=== PATIENT | female | born 1995 | race Caucasian/White ===

== ENCOUNTER 2021-06-19 21:20 | Observation (INO) ==
[2021-06-19] MEDS ORDERED: MoRPHine SULFATE 4 MG/ML 1 ML CARP\\VIAL IV STA (21:38)
[2021-06-19] MEDS ORDERED: ONDANSETRON INJ 2 MG/ML 2 ML VIAL IV STA (21:38)
--- NOTE | 2021-06-19 21:40 | Emergency Department Note ---
History of Present Illness General Chief complaint: Back Injury/Pain Stated complaint: BACK PAIN Time Seen by Provider: 06/19/21 21:28 History of Present Illness Maximum Pain Intensity: 10 This is a 25-year-old female that presents to the emergency department via private vehicle with complaints of "back pain". She is accompanied by male. The patient notes that over the past 3 days she has been experiencing low back pain. No known trauma or injury. Patient denies any radiation down her legs. She has been trying heating pad as well as Tylenol with minimal relief. Pain seems to be at rest and also with movements. She denies any fevers, chills, nausea or vomiting. She denies any history of blood clots. She notes intermittent abdominal discomfort. She notes that the pain seemed to worsen today therefore prompting arrival. Patient denies any lower extremity weakness, bowel or bladder incontinence, numbness or tingling in the genital region. Home Medications Medication Instructions Recorded Confirmed Type levothyroxine 75 mcg tablet 75 mcg PO DAILY 10/01/20 06/20/21 History metformin 500 mg tablet,extended 500 mg PO BID 10/01/20 06/20/21 History release 24 hr ibuprofen 200 mg tablet 400 mg PO Q6H PRN 06/20/21 06/20/21 History Allergies Allergy/AdvReac Type Severity Reaction Status Date / Time adhesive tape Allergy Mild Rash Verified 06/20/21 00:34 Past Med/Surg History Medical History Diabetes Hypothyroidism Morbid obesity with BMI of 50.0-59.9, adult Surgical History History of hip surgery at age 12 History of tonsillectomy Family History (Updated 06/20/21 @ 01:20 by Ines Li DO) Other Diabetes Social History Smoking Status: Current every day smoker Tobacco Type: Cigarettes Preferred Language: Beninese Feels Safe at Home: Yes Review of Systems A total of 10 systems reviewed and were otherwise negative Physical Exam Vital Signs Vital Signs - 24 hr 06/19/21 21:20 06/19/21 21:23 06/20/21 01:03 Temperature 36.3 C L Temperature Source Temporal Artery Scan Pulse Rate 107 H Pulse Rate [Left Radial] 70 105 H Pulse Rhythm Regular Pulse Rhythm [Left Radial] Regular Pulse Strength Normal Respiratory Rate 20 20 16 Respiratory Effort / Characteristics Non-Labored Non-Labored Respiratory Depth Normal Normal Respiratory Pattern Regular Blood Pressure 165/105 H Blood Pressure [Left Arm] 168/124 H Blood Pressure Mean 125 Blood Pressure Mean [Left Arm] 138 Blood Pressure Position Sitting Pulse Oximetry 98 97 97 Oxygen Delivery Method Room Air Room Air Sepsis Recent Fever Within 48 Hours No Sepsis New/Unexplained Change in Mental Status N/A Sepsis Action Taken by Nursing No Action Required VITAL SIGNS - Vital signs and nursing notes were reviewed. Stable and afebrile. GENERAL -25-year-old female appearing her stated age who is crying upon my entry into the examination room and appears to be in pain. Patient is communicating well crying. SKIN - Without rashes. No meningeal or petechial rash. HEAD - NC/AT. EYES - Sclera anicteric. EARS - No deformities of external structures noted on gross examination bilaterally. NOSE - Midline and without cyanosis. No epistaxis or purulent drainage noted. MOUTH/OROPHARYNX - Without perioral cyanosis. NECK - Neck with FROM. No nuchal rigidity. LUNGS - Chest wall symmetric without accessory muscle use, intercostals retractions, or central cyanosis. Normal vesicular breath sounds CTA B/L. No wheezes, rales, or rhonchi appreciated. CARDIAC - RRR with S1/S2. No murmur, rubs, or gallops appreciated. ABDOMEN - Abdominal contour without visible masses. BS normoactive all four quadrants. No tenderness to palpation. MUSCULOSKELETALno bony tenderness or palpable spasms in the paraspinous musculature. EXTREMITIES - No clubbing or peripheral cyanosis. +5/5 strength noted in UE/LE bilaterally. NEUROLOGIC - Cranial nerves II through XII grossly intact. PSYCH - A&Ox3 and cooperates fully with examiner. Pt is very pleasant and int eracts well with examiner. Course Administered Medications Lactated Ringer's (Lr) 1,000 mls @ 125 mls/hr IV .Q8H PRISCA Stop: 06/20/21 18:11 Last Admin: 06/20/21 02:32 Dose: 125 mls/hr Documented by: [id number] Ketorolac Tromethamine (Ketorolac Tromethamine 15 Mg/Ml Vial) 15 mg IV Q6H PRN PRN Reason: Pain Stop: 06/25/21 02:11 Last Admin: 06/20/21 02:32 Dose: 15 mg Documented by: [id number] Discontinued Medications Sodium Chloride (Nss 1000ml) 1,000 mls @ 999 mls/hr IV .Q1H1M PRISCA Stop: 06/20/21 00:15 Last Infusion: 06/20/21 01:24 Dose: 0 mls/hr Documented by: [id number] Admin: 06/19/21 23:20 Dose: 999 mls/hr Documented by: [id number] Ceftriaxone Sodium (Rocephin) 2,000 mg in 70 mls @ 140 mls/hr IV NOW STA Stop: 06/20/21 00:51 Last Infusion: 06/20/21 01:24 Dose: 0 mls/hr Documented by: [id number] Admin: 06/20/21 00:54 Dose: 140 mls/hr Documented by: [id number] Insulin Human Regular (Novolin-R Insulin Per Unit Charge) 10 units IV NOW STA Stop: 06/19/21 23:08 Last Admin: 06/19/21 23:20 Dose: 10 units Documented by: [id number] Cosigned by: [id number] Ioversol (Optiray 320 125ml) 117 ml IV ONCE ONE Stop: 06/19/21 22:45 Last Admin: 06/19/21 22:46 Dose: 117 ml Documented by: [id number] Morphine Sulfate (Morphine Sulfate 4 Mg/Ml 1 Ml Carp\\Vial) 4 mg IV NOW STA Stop: 06/19/21 21:39 Last Admin: 06/19/21 21:48 Dose: 4 mg Documented by: [id number] Ondansetron HCl (Ondansetron Inj 2 Mg/Ml 2 Ml Vial) 4 mg IV NOW STA Stop: 06/19/21 21:39 Last Admin: 06/19/21 21:48 Dose: 4 mg Documented by: [id number] Medical Decision Making Laboratory Data Result diagrams: 06/19/21 21:45 06/19/21 21:45 Lab Results 06/19/21 06/19/21 06/19/21 Range/Units 21:45 21:45 21:45 WBC 12.71 H (4.8-10.8) K/uL RBC 5.62 H (4.2-5.4) M/uL Hgb 14.7 (12.0-16.0) g/dL Hct 45.7 (37-47) % MCV 81.3 (80-100) fL MCH 26.2 (25-34) pg MCHC 32.2 (32-36) g/dL RDW Std Deviation 44.6 (36.4-46.3) fL RDW Coeff of Tod 15.1 H (11.5-14.5) % Plt Count 287 (130-400) K/uL MPV 9.0 (7.4-10.4) fL Immature Gran % (Auto) 0.3 % Neut % (Auto) 70.5 % Lymph % (Auto) 23.2 % [place] % (Auto) 4.7 % Eos % (Auto) 1.1 % Baso % (Auto) 0.2 % Neut # (Auto) 8.95 H (1.4-6.5) K/uL Lymph # (Auto) 2.95 (1.2-3.4) K/uL [place] # (Auto) 0.60 H (0.11-0.59) K/uL Eos # (Auto) 0.14 (0-0.5) K/uL Baso # (Auto) 0.03 (0-0.2) K/uL Immature Gran # (Auto) 0.04 H (0.00-0.02) K/uL Sodium 134 L (136-145) mmol/L Potassium 4.3 (3.5-5.1) mmol/L Chloride 97 L (98-107) mmol/L Carbon Dioxide 30 (21-32) mmol/L Anion Gap 7 (3-11) BUN 7 (6-23) mg/dl Creatinine 0.74 (0.6-1.2) mg/dl Est Cr Clr Drug Dosing 174.4 ml/min Est GFR ( Amer) 132.4 ml/min Est GFR (Non-Af Amer) 114.2 ml/min BUN/Creatinine Ratio 9.5 L (10-20) Glucose 486 H* (70-99(Fasting)) mg/dl POC Glucose (70-99) mg/dl Calcium 9.7 (8.5-10.1) mg/dl Magnesium 1.7 (1.7-2.4) mg/dl Total Bilirubin 0.5 (0.2-1.0) mg/dl AST 36 (13-39) U/L ALT 32 (7-52) U/L Alkaline Phosphatase 155 H (34-104) U/L Total Protein 8.2 (6.0-8.3) gm/dl Albumin 4.0 (3.4-5.0) gm/dl Globulin 4.2 H (2.5-4.0) gm/dl Albumin/Globulin Ratio 1.0 (0.9-2) HCG, Qual Negative (Negative) Urine Color Urine Appearance (Clear) Urine pH (4.5-7.5) Ur Specific [place] (1.000-1.030) Urine Protein (Negative) Urine Glucose (UA) (Negative) Urine Ketones (Negative) Urine Blood (Negative) Urine Nitrite (Negative) Urine Bilirubin (Negative) Urine Urobilinogen (Negative) Ur Leukocyte Esterase (Negative) Urine WBC (Auto) (0-5) /hpf Urine RBC (Auto) (0-4) /hpf U Hyaline Cast (Auto) (0-5) /lpf U Epithel Cells (Auto) (0-5) /lpf Urine Bacteria (Auto) (Negative) SARS-CoV-2, RNA, NAAT (NEGATIVE) 06/19/21 06/19/21 06/19/21 Range/Units 23:11 23:15 23:45 WBC (4.8-10.8) K/uL RBC (4.2-5.4) M/uL Hgb (12.0-16.0) g/dL Hct (37-47) % MCV (80-100) fL MCH (25-34) pg MCHC (32-36) g/dL RDW Std Deviation (36.4-46.3) fL RDW Coeff of Tod (11.5-14.5) % Plt Count (130-400) K/uL MPV (7.4-10.4) fL Immature Gran % (Auto) % Neut % (Auto) % Lymph % (Auto) % [place] % (Auto) % Eos % (Auto) % Baso % (Auto) % Neut # (Auto) (1.4-6.5) K/uL Lymph # (Auto) (1.2-3.4) K/uL [place] # (Auto) (0.11-0.59) K/uL Eos # (Auto) (0-0.5) K/uL Baso # (Auto) (0-0.2) K/uL Immature Gran # (Auto) (0.00-0.02) K/uL Sodium (136-145) mmol/L Potassium (3.5-5.1) mmol/L Chloride (98-107) mmol/L Carbon Dioxide (21-32) mmol/L Anion Gap (3-11) BUN (6-23) mg/dl Creatinine (0.6-1.2) mg/dl Est Cr Clr Drug Dosing ml/min Est GFR ( Amer) ml/min Est GFR (Non-Af Amer) ml/min BUN/Creatinine Ratio (10-20) Glucose (70-99(Fasting)) mg/dl POC Glucose 443 H* 408 H* (70-99) mg/dl Calcium (8.5-10.1) mg/dl Magnesium (1.7-2.4) mg/dl Total Bilirubin (0.2-1.0) mg/dl AST (13-39) U/L ALT (7-52) U/L Alkaline Phosphatase (34-104) U/L Total Protein (6.0-8.3) gm/dl Albumin (3.4-5.0) gm/dl Globulin (2.5-4.0) gm/dl Albumin/Globulin Ratio (0.9-2) HCG, Qual (Negative) Urine Color Yellow Urine Appearance Clear (Clear) Urine pH 5.0 (4.5-7.5) Ur Specific [place] 1.034 H (1.000-1.030) Urine Protein Negative (Negative) Urine Glucose (UA) 3+ H (Negative) Urine Ketones Negative (Negative) Urine Blood 1+ H (Negative) Urine Nitrite Positive A (Negative) Urine Bilirubin Negative (Negative) Urine Urobilinogen Negative (Negative) Ur Leukocyte Esterase 1+ H (Negative) Urine WBC (Auto) >30 H (0-5) /hpf Urine RBC (Auto) 5-10 H (0-4) /hpf U Hyaline Cast (Auto) 1-5 (0-5) /lpf U Epithel Cells (Auto) 20-30 H (0-5) /lpf Urine Bacteria (Auto) 4+ H (Negative) SARS-CoV-2, RNA, NAAT (NEGATIVE) 06/20/21 06/20/21 Range/Units 00:21 00:58 WBC (4.8-10.8) K/uL RBC (4.2-5.4) M/uL Hgb (12.0-16.0) g/dL Hct (37-47) % MCV (80-100) fL MCH (25-34) pg MCHC (32-36) g/dL RDW Std Deviation (36.4-46.3) fL RDW Coeff of Tod (11.5-14.5) % Plt Count (130-400) K/uL MPV (7.4-10.4) fL Immature Gran % (Auto) % Neut % (Auto) % Lymph % (Auto) % [place] % (Auto) % Eos % (Auto) % Baso % (Auto) % Neut # (Auto) (1.4-6.5) K/uL Lymph # (Auto) (1.2-3.4) K/uL [place] # (Auto) (0.11-0.59) K/uL Eos # (Auto) (0-0.5) K/uL Baso # (Auto) (0-0.2) K/uL Immature Gran # (Auto) (0.00-0.02) K/uL Sodium (136-145) mmol/L Potassium (3.5-5.1) mmol/L Chloride (98-107) mmol/L Carbon Dioxide (21-32) mmol/L Anion Gap (3-11) BUN (6-23) mg/dl Creatinine (0.6-1.2) mg/dl Est Cr Clr Drug Dosing ml/min Est GFR ( Amer) ml/min Est GFR (Non-Af Amer) ml/min BUN/Creatinine Ratio (10-20) Glucose (70-99(Fasting)) mg/dl POC Glucose 312 H* (70-99) mg/dl Calcium (8.5-10.1) mg/dl Magnesium (1.7-2.4) mg/dl Total Bilirubin (0.2-1.0) mg/dl AST (13-39) U/L ALT (7-52) U/L Alkaline Phosphatase (34-104) U/L Total Protein (6.0-8.3) gm/dl Albumin (3.4-5.0) gm/dl Globulin (2.5-4.0) gm/dl Albumin/Globulin Ratio (0.9-2) HCG, Qual (Negative) Urine Color Urine Appearance (Clear) Urine pH (4.5-7.5) Ur Specific [place] (1.000-1.030) Urine Protein (Negative) Urine Glucose (UA) (Negative) Urine Ketones (Negative) Urine Blood (Negative) Urine Nitrite (Negative) Urine Bilirubin (Negative) Urine Urobilinogen (Negative) Ur Leukocyte Esterase (Negative) Urine WBC (Auto) (0-5) /hpf Urine RBC (Auto) (0-4) /hpf U Hyaline Cast (Auto) (0-5) /lpf U Epithel Cells (Auto) (0-5) /lpf Urine Bacteria (Auto) (Negative) SARS-CoV-2, RNA, NAAT NEGATIVE (NEGATIVE) Imaging Data Radiologist's Impression: CT L SPINE: No fracture or dislocation. Alignment unremarkable. 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 Moderate canal stenosis at the L3-L4 level. Mild canal stenosis at L4-L5. Soft tissue structures are intact. Impression: No acute findings. Canal narrowing as described. Radiologist: Dakotah Mon M.D. Study ready at 23:06 and initial results transmitted at 23:26 CT ABDOMEN & PELVIS With Contrast: Lower thorax is clear. Fatty, large liver. Right lobe measures 30 cm. Cholelithiasis. Pancreas intact. Spleen enlarged measuring 16 cm. Adrenals and kidneys are intact. Bladder unremarkable bowel loops intact. Normal appendix. No adenopathy, free fluid or free air. No acute findings in the [place]. Impression: No acute findings. Hepatosplenomegaly. Cholelithiasis. Fatty liver. Radiologist: Dakotah Mon M.D. Study ready at 22:57 and initial results transmitted at 23:19 MDM Narrative Patient was seen and evaluated as above in room D05. Review was performed of nursing notes and vital signs. I did review pertinent previous visits and patient history. After obtaining a thorough history and physical examination the above work up was performed. Patient presents to us today with atraumatic back pain. She is nontoxic on exam. No evidence of cauda equina syndrome. Discomfort not reproducible on exam with palpation to the L-spine. Options of care were discussed with the patient. IV access was established. Labs were drawn. She was medicated with IV analgesics and antiemetics. Labs reveal mild leukocytosis 12.71. No anemia. Mild hyponatremia 134. I was notified of the patient's significant hyperglycemia at 486. Repeat glucose 408. 10 units of regular insulin was ordered intravenously. This was accompanied by 1 L of normal saline. This decreased the glucose to 312. Patient's urinalysis at this time suggests potential for UTI. Patient has a history of UTI and this feels similar. COVID testing negative. Imaging was obtained. CT scan of the abdomen pelvis with L-spine assessment does not reveal any emergent etiology. Clinically I am concerned about potential for UTI/pyelonephritis. With the patient presenting with a significantly hyperglycemic state, UTI in the setting of back pain it is felt that further evaluation and management in the inpatient setting is warranted. 2 g of IV Rocephin was ordered. When I inquired about the patient's hyperglycemia and compliance with her metformin she notes that she takes it sometimes. She believes that she last took metformin yesterday. Case discussed with the hospitalist as well as the attending physician. Please refer to further documentation regarding her stay. GCS: 15 In the evaluation and treatment of this patient the following differential diagnoses were entertained: UTI, pyelonephritis, hyperglycemia, DKA, sepsis, among others. Impression & Plan Back pain, UTI (urinary tract infection), Hyperglycemia Discharge Plan Visit Data Chief Complaint: Back Injury/Pain Stated Complaint: BACK PAIN ED Provider: Vernon Wade ED Midlevel Provider: Parviz Turner Discharge Problem: Back pain, UTI (urinary tract infection), Hyperglycemia Patient Disposition: Admitted As Inpatient Condition: Good Discharge Instructions Interventions: ED Discharge Assessment Last Done: 06/20/21 01:51
[2021-06-19 22:02] LABS: Basophils # (auto) 0.03 K/uL (0-0.2); Basophils % (auto) 0.2 %; Eosinophils # (auto) 0.14 K/uL (0-0.5); Eosinophils % (auto) 1.1 %; Hematocrit (blood only) 45.7 % (37-47); Hemoglobin 14.7 g/dL (12.0-16.0); Immature Granulocytes # (auto) 0.04 K/uL (0.00-0.02); Immature Granulocytes % (auto) 0.3 %; Lymphocytes # (auto) 2.95 K/uL (1.2-3.4); Lymphocytes % (auto) 23.2 %; Mean Corpuscular Hemoglobin 26.2 pg (25-34); Mean Corpuscular Hgb Conc 32.2 g/dL (32-36); Mean Corpuscular Volume 81.3 fL (80-100); Monocytes % (auto) 4.7 %; Neutrophils # (auto) 8.95 K/uL (1.4-6.5); Neutrophils % (auto) 70.5 %; Platelet Count 287 K/uL (130-400); RDW Coefficient of Variation 15.1 % (11.5-14.5); RDW Standard Deviation 44.6 fL (36.4-46.3); Red Blood Count 5.62 M/uL (4.2-5.4); White Blood Count 12.71 K/uL (4.8-10.8)
[2021-06-19 22:26] LABS: Pregnancy Test, Serum Negative (Negative)
[2021-06-19 22:29] LABS: BUN Creatinine Ratio 9.5 (10-20); Bilirubin,Total 0.5 mg/dl (0.2-1.0); Calcium 9.7 mg/dl (8.5-10.1); Creatinine Clr Calc Pharmacy 174.4 ml/min; Est GFR (African American) 132.4 ml/min; Est GFR (Non-African American) 114.2 ml/min; Globulin 4.2 gm/dl (2.5-4.0); Magnesium 1.7 mg/dl (1.7-2.4); Potassium 4.3 mmol/L (3.5-5.1); Total Protein 8.2 gm/dl (6.0-8.3)
[2021-06-19] MEDS ORDERED: OPTIRAY 320 125ml IV ONE (22:44)
[2021-06-19] MEDS ORDERED: NovoLIN-R INSULIN PER UNIT CHARGE IV STA (23:07)
[2021-06-19] MEDS ORDERED: SODIUM CHLORIDE 0.9% 1000ML 1,000 ML IV SCH (23:15)
[2021-06-19 23:55] LABS: Appearance Urine Clear (Clear); Bacteria Urine Automated 4+ (Negative); Bilirubin Urine Negative (Negative); Blood Urine 1+ (Negative); Color Urine Yellow; Epithelial Cell Urine Auto 20-30 /lpf (0-5); Glucose Urine UA 3+ (Negative); Ketones Urine Negative (Negative); Leukocyte Esterase Urine 1+ (Negative); Nitrite Urine Positive (Negative); Protein Urine Negative (Negative); Specific Gravity Urine 1.034 (1.000-1.030); Urobilinogen Urine Negative (Negative); WBC Urine Automated >30 /hpf (0-5)
[2021-06-20] MEDS ORDERED: cefTRIAXone SODIUM 2,000 MG/70 ML BAG IV STA (00:22)
--- NOTE | 2021-06-20 01:35 | History & Physical Report ---
Date of Service June 20, 2021 Assessment & Plan (1) Diabetes: Plan: Patient with fairly new diagnosis of DM. She is on Metformin therapy at home. Misses doses frequently. Presents with hyperglycemia - BSG 486 on arrival. Improved to 312 after 1L IVF and 10u insulin IV. -Observation to medical -Fingersticks qAC/HS -Lantus 7u BID, ISS with goal BSG 100 - 140 -Check HgbA1C -Patient follows in the [facility] with Dr. Welch. Would possibly benefit from outpatient diabetes education referral. -Resume Metformin on DC (2) Back pain: Plan: ?Muscular strain ?early pyelonephritis. No neurological deficits -Tylenol PRN -Toradol PRN -Lidoderm patch -Heating pad -Morphine PRN (3) UTI (urinary tract infection): Plan: Patient with frequent UTIs. No CVA tenderness. No mention of pyelonephritis on CT -Ceftriaxone 2gm IV daily (dosed for weight) -Follow cultures (4) Hypothyroidism: Plan: Chronic -Check TSH with AM labs -Continue Synthroid Plan: F/E/N - LR maintenance 125mL/hr x 2L, electroltyes WNL - sodium corrects to normal for hyperglycemia, CC diet as tolerated Ppx - Low risk for DVT. Encourage ambulation with assistance as tolerated Code - Full Dispo - Observation to medical History of Present Illness Chief Complaint: back pain Primary Care Provider: NO PCP Debi Diaz is a 25yo female with history of DM (fairly recently diagnosed within the last 1-2 years). She is on Metformin therapy with poor adherence. She presents today with 3 days of low back pain. Pain is constant, dull and aching, located across the low back. She has occasional stabbing pain, 10/10 at its worst. Worse with movement and position as well as deep breathing. She denies numbness/tingling/weakness. Denies bowel or bladder problems. No trauma, no strain. Patient has missed several doses of her Metformin. She states that she tolerates the medication well but has difficulty remembering to take it. She denies fever, chills, chest pain, cough, SOB. Denies abdominal pain, nausea, vomiting, diarrhea or constipation, dysuria, hematuria. No additional complaints at this time. In the ER patient was in acute distress secondary to pain. She was administered Morphine IV which improved her pain to 7/10. Her significant other is in the room with her. Patient is tearful and does not wish to stay in the hospital without her significant other. Blood sugar elevated at 486 on arrival. Improved to 312 after IVF and 10u IV insulin No anion gap ER Course: Ceftriaxone 2gm IV, Insulin 10u IV, Morphine 4mg IV, Zofran 4mg IV, NSS x 1L Allergies Allergy/AdvReac Type Severity Reaction Status Date / Time adhesive tape Allergy Mild Rash Verified 06/20/21 00:34 Home Medications Medication Instructions Recorded Confirmed Type levothyroxine 75 mcg tablet 75 mcg PO DAILY 10/01/20 06/20/21 History metformin 500 mg tablet,extended 500 mg PO BID 10/01/20 06/20/21 History release 24 hr ibuprofen 200 mg tablet 400 mg PO Q6H PRN 06/20/21 06/20/21 History Past Med/Surg History Medical History (Updated 06/20/21 @ 01:34 by Ines Li DO) Diabetes Hypothyroidism Morbid obesity with BMI of 50.0-59.9, adult Surgical History (Updated 06/20/21 @ 01:24 by Ines Li DO) History of hip surgery at age 12 History of tonsillectomy Family History (Updated 06/20/21 @ 01:20 by Ines Li DO) Other Diabetes Social History Smoking Status: Current every day smoker Tobacco Type: Cigarettes Preferred Language: Kyrgyz Feels Safe at Home: Yes Review of Systems Review of Systems: All systems reviewed & are unremarkable except as noted in HPI & below Physical Exam Physical Exam: General: patient resting comfortably, NAD, non-toxic in appearance, AA&O x 4 Skin: warm, dry, intact, no rashes or lesions HEENT: NC/AT, PERRL, EOMI, anicteric sclera, conjunctiva without injection, external ear normal to inspection and nontender, nares patent, moist mucus membranes, dentition intact, no oropharyngeal lesions, neck supple, trachea midline, no LAD, no thyromegaly, no JVD Heart: +S1/S2, regular, no m/r/g Lungs: equal air entry bilaterally, no rales/rhonchi/wheezes Abd: +BS, soft, NT/ND, no masses/organomegaly/ascites Ext: warm, 2+ pulses in UE/LE bilaterally, no clubbing/cyanosis or edema Tenderness with palpation of lumbar spine, tension of paraspinal musculature No CVA tenderness Neuro: nonfocal, patient AA&O x 4, speech intact, no facial droop, moving all extremities on command with equal strength 5/5 Results & Data Results & Data ([facility]) Vital Signs (Past 12 Hours) Vital Signs Temp Pulse Pulse Resp BP BP Pulse Ox 06/20/21 01:03 105 H 16 168/124 H 97 06/19/21 21:23 36.3 C L 107 H 20 165/105 H 97 06/19/21 21:20 70 20 98 Laboratory Results Laboratory Results WBC 12.71 K/uL (4.8-10.8) H 06/19/21 21:45 RBC 5.62 M/uL (4.2-5.4) H 06/19/21 21:45 Hgb 14.7 g/dL (12.0-16.0) 06/19/21 21:45 Hct 45.7 % (37-47) 06/19/21 21:45 MCV 81.3 fL (80-100) 06/19/21 21:45 MCH 26.2 pg (25-34) 06/19/21 21:45 MCHC 32.2 g/dL (32-36) 06/19/21 21:45 RDW Std Deviation 44.6 fL (36.4-46.3) 06/19/21 21:45 RDW Coeff of Tod 15.1 % (11.5-14.5) H 06/19/21 21:45 Plt Count 287 K/uL (130-400) 06/19/21 21:45 MPV 9.0 fL (7.4-10.4) 06/19/21 21:45 Immature Gran % (Auto) 0.3 % 06/19/21 21:45 Neut % (Auto) 70.5 % 06/19/21 21:45 Lymph % (Auto) 23.2 % 06/19/21 21:45 [place] % (Auto) 4.7 % 06/19/21 21:45 Eos % (Auto) 1.1 % 06/19/21 21:45 Baso % (Auto) 0.2 % 06/19/21 21:45 Neut # (Auto) 8.95 K/uL (1.4-6.5) H 06/19/21 21:45 Lymph # (Auto) 2.95 K/uL (1.2-3.4) 06/19/21 21:45 [place] # (Auto) 0.60 K/uL (0.11-0.59) H 06/19/21 21:45 Eos # (Auto) 0.14 K/uL (0-0.5) 06/19/21 21:45 Baso # (Auto) 0.03 K/uL (0-0.2) 06/19/21 21:45 Immature Gran # (Auto) 0.04 K/uL (0.00-0.02) H 06/19/21 21:45 Sodium 134 mmol/L (136-145) L 06/19/21 21:45 Potassium 4.3 mmol/L (3.5-5.1) 06/19/21 21:45 Chloride 97 mmol/L (98-107) L 06/19/21 21:45 Carbon Dioxide 30 mmol/L (21-32) 06/19/21 21:45 Anion Gap 7 (3-11) 06/19/21 21:45 BUN 7 mg/dl (6-23) 06/19/21 21:45 Creatinine 0.74 mg/dl (0.6-1.2) 06/19/21 21:45 Est Cr Clr Drug Dosing 174.4 ml/min 06/19/21 21:45 Est GFR ( Amer) 132.4 ml/min 06/19/21 21:45 Est GFR (Non-Af Amer) 114.2 ml/min 06/19/21 21:45 BUN/Creatinine Ratio 9.5 (10-20) L 06/19/21 21:45 Glucose 486 mg/dl (70-99(Fasting)) H* 06/19/21 21:45 POC Glucose 312 mg/dl (70-99) H* 06/20/21 00:21 Calcium 9.7 mg/dl (8.5-10.1) 06/19/21 21:45 Magnesium 1.7 mg/dl (1.7-2.4) 06/19/21 21:45 Total Bilirubin 0.5 mg/dl (0.2-1.0) 06/19/21 21:45 AST 36 U/L (13-39) 06/19/21 21:45 ALT 32 U/L (7-52) 06/19/21 21:45 Alkaline Phosphatase 155 U/L (34-104) H 06/19/21 21:45 Total Protein 8.2 gm/dl (6.0-8.3) 06/19/21 21:45 Albumin 4.0 gm/dl (3.4-5.0) 06/19/21 21:45 Globulin 4.2 gm/dl (2.5-4.0) H 06/19/21 21:45 Albumin/Globulin Ratio 1.0 (0.9-2) 06/19/21 21:45 HCG, Qual Negative (Negative) 06/19/21 21:45 Urine Color Yellow 06/19/21 23:15 Urine Appearance Clear (Clear) 06/19/21 23:15 Urine pH 5.0 (4.5-7.5) 06/19/21 23:15 Ur Specific [place] 1.034 (1.000-1.030) H 06/19/21 23:15 Urine Protein Negative (Negative) 06/19/21 23:15 Urine Glucose (UA) 3+ (Negative) H 06/19/21 23:15 Urine Ketones Negative (Negative) 06/19/21 23:15 Urine Blood 1+ (Negative) H 06/19/21 23:15 Urine Nitrite Positive (Negative) A 06/19/21 23:15 Urine Bilirubin Negative (Negative) 06/19/21 23:15 Urine Urobilinogen Negative (Negative) 06/19/21 23:15 Ur Leukocyte Esterase 1+ (Negative) H 06/19/21 23:15 Urine WBC (Auto) >30 /hpf (0-5) H 06/19/21 23:15 Urine RBC (Auto) 5-10 /hpf (0-4) H 06/19/21 23:15 U Hyaline Cast (Auto) 1-5 /lpf (0-5) 06/19/21 23:15 U Epithel Cells (Auto) 20-30 /lpf (0-5) H 06/19/21 23:15 Urine Bacteria (Auto) 4+ (Negative) H 06/19/21 23:[address] lumbar spine: Per stat radno fracture or dislocation. Alignment unremarkable. 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 Moderate canal stenosis at L3-L4 level. Mild canal stenosis at the L4-L5. Soft tissue structures are intact. Impression: No acute findings. Canal narrowing as described. CT abdomen and pelvis with contrast: Per stat readlower thorax is clear. Fatty, large liver. Right lobe measures 30 cm. Cholelithiasis. Pancreas intact. Spleen enlarged measuring 16 cm. Adrenals and kidneys are intact. Bladder unremarkable, bowel loops intact. Normal appendix. No adenopathy, free fluid or free air. No acute findings in the bones. Impression: No acute findings. Hepatosplenomegaly. Cholelithiasis. Fatty liver Code Status & VTE Plan VTE Prophylaxis Plan VTE Prophylaxis will be ordered: No PG Care Time/CCT Total # of Minutes Spent Total Time Spent with Patient: Total time spent is greater than 50% in coordination of care (as documented) at patient's floor/unit and/or counseling patient: Coding Level of Care Code INT OBSERVATION CARE 50M LVL 2 Diagnoses Diabetes E11.9 Hypothyroidism E03.9 Back pain M54.9 UTI (urinary tract infection) N39.0
[2021-06-20] MEDS ORDERED: ONDANSETRON INJ 2 MG/ML 2 ML VIAL IV PRN (02:12)
[2021-06-20] MEDS ORDERED: GLUCOSE 40% GEL 15 GM TUBE PO PRN (02:12)
[2021-06-20] MEDS ORDERED: CARBOHYDRATES FOR HYPOGLYCEMIA PO PRN (02:12)
[2021-06-20] MEDS ORDERED: GLUCAGON FOR INJ 1 MG VIAL SQ PRN (02:12)
[2021-06-20] MEDS ORDERED: ACETAMINOPHEN 325 MG TAB PO PRN (02:12)
[2021-06-20] MEDS ORDERED: MoRPHine SULFATE 2 MG/ML CARP IV PRN (02:12)
[2021-06-20] MEDS ORDERED: KETOROLAC TROMETHAMINE 15 MG/ML VIAL IV PRN (02:12)
[2021-06-20] MEDS ORDERED: GLUCOSE 10 TABS/TUBE PO PRN (02:12)
[2021-06-20] MEDS ORDERED: DEXTROSE 50% 50 ML SYRINGE IV PRN (02:12)
[2021-06-20] MEDS: LACTATED RINGER'S 1,000 ML IV SCH ×2 (02:32→09:55)
[2021-06-20] MEDS ORDERED: LEVOTHYROXINE SODIUM 75 MCG TABLET PO SCH (06:30)
--- NOTE | 2021-06-20 07:21 | CT Scan Report ---
CT lumbar spine w con HISTORY: 25 years-old Female low back pain acute low back pain COMPARISON: CT abdomen and pelvis of same day TECHNIQUE: Multiple axial CT images of the lumbar spine were obtained following the intravenous admin istration of 117 mL Optiray 320. A dose lowering technique was used consistent with the principals of REN. FINDINGS: Cholelithiasis with hepatic steatosis and hepatosplenomegaly. ORIF changes of the left proximal femur . No paravertebral edema or lymphadenopathy. Ill-defined linear lucencies noted involving the right L2 transverse process (image 119 of series 4 a nd also image 39 of series 401). Mild degeneration of the SI joints. There is no subluxation, signifi cant intervertebral disc space narrowing or endplate erosion. No spondylolysis or spondylolisthesis. Bone mineralization appears normal. Evaluation of the central canal and neuroforamina is better asses sed by MRI. There is suggestion of congenitally shortened pedicles. This contributes to mild backgrou nd central canal narrowing. No high-grade central canal or neural foraminal narrowing identified. The re is a small posterior disc osteophyte complex at L1-L2. There is suggestion of mild multilevel neur al foraminal narrowing common notably on the left at L4-L5. IMPRESSION: 1. Ill-defined linear lucency involving the right L2 transverse process may represent an acute nondis placed fracture. Correlate with point tenderness. This finding was called/faxed to the emergency depa rtment at time of dictation. 2. Congenitally shortened pedicles. No high-grade central canal or neural foraminal narrowing identif ied. 3. Cholelithiasis. 4. Hepatic steatosis with hepatosplenomegaly. ACT 112: Negative or not required by law. The above report was generated using voice recognition software. It may contain grammatical, syntax o r spelling errors. Electronically signed by: Noble Carpio M.D. 06/20/2021 7:19 AM
--- NOTE | 2021-06-20 08:02 | CT Scan Report ---
CT SCAN OF THE ABDOMEN AND PELVIS WITH IV CONTRAST CLINICAL HISTORY: Low back pain. COMPARISON STUDY: Abdominal CT dated 03/29/2021. TECHNIQUE: Following the IV administration of 117 cc of Optiray 320, CT scan of the abdomen and pelv is is performed from the lung bases to the proximal femora. Images are reviewed in the axial, sagitta l, and coronal planes. IV contrast was administered without complication. A dose lowering technique w as utilized adhering to the principles of ALARA. The examination is degraded by large body habitus, a nd by streak artifact from the body wall abutting the CT gantry. CT DOSE: 2200.79 mGy.cm FINDINGS: Lung bases: The heart is normal in size and without pericardial effusion. The lung bases are clear. Liver: The contrast-enhanced liver is enlarged, measuring 31 cm in craniocaudal length. The liver dem onstrates diffusely diminished attenuation consistent with hepatic steatosis. Fatty sparing is seen a djacent to gallbladder fossa. There is no intrahepatic biliary ductal dilatation. The hepatic veins a nd portal veins are patent. Gallbladder: There are numerous calcified gallstones with no CT evidence of acute cholecystitis. Spleen: The spleen is enlarged measuring 17.3 cm in length. Pancreas: Mildly atrophic and grossly unremarkable. Adrenal glands: Unremarkable. Kidneys: The contrast enhanced kidneys are normal in size and without hydronephrosis. The kidneys enh ance symmetrically. Abdominal vasculature: The abdominal aorta is normal in course and caliber. Bowel: No bowel obstruction is. The appendix is normal as visualized. Peritoneum: There is no intraperitoneal free air or abdominal ascites. Lymphadenopathy: None. Pelvic viscera: The bladder, uterus, and adnexa are normal as visualized noting bilateral ovarian fol licles. Skeletal structures: No lytic or blastic lesions are seen. 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 IMPRESSION: 1. There are no acute infectious or inflammatory findings in the abdomen or pelvis. 2. Hepatomegaly and severe hepatic steatosis. 3. Splenomegaly. 4. 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 5. Cholelithiasis. 6. Additional findings as above. ACT 112: Negative or not required by law. Electronically signed by: Raymond Richards M.D. 06/20/2021 7:59 AM
[2021-06-20 08:31] LABS: Estimated Average Glucose 303 mg/dl; Hemoglobin A1C 12.2 % (4.5-5.6)
[2021-06-20] MEDS ORDERED: INSULIN GLARGINE SOLOSTAR 100 UNITS/ML 3 ML PEN SC SCH ×4 (09:00→21:00)
[2021-06-20] MEDS ORDERED: INSULIN HUMAN REGULAR PER UNIT 8 UNITS in SYRINGE 7.92 ML IV ONE (09:15)
[2021-06-20] MEDS: INSULIN ASPART PER UNIT SC SCH ×4 (09:15→21:25)
[2021-06-20] MEDS: LIDOCAINE 5% 1 PATCH TD SCH (09:18)
[2021-06-20] MEDS ORDERED: DICLOFENAC SOD 1% GEL 100 GM TUBE EXT PRN (10:18)
--- NOTE | 2021-06-20 11:38 | Hospitalist Progress Note ---
Date of Service June 20, 2021 Assessment & Plan (1) Diabetes: Plan: Patient with fairly new diagnosis of DM. She is on Metformin therapy at home. Misses doses frequently. Presents with hyperglycemia - BSG 486 on arrival. Improved to 312 after 1L IVF and 10u insulin IV. - A1C 12.2% - has been started on Lantus (7U BID) along with SS coverage with analog-- blood sugars remain in the mid-upper 300's - uptitrate lantus to 20U total and shift to once/day for added compliance - continue metformin open disease can transition to XR as compliance with the twice daily dosing seems to be an issue) -Lengthy discussion with patient regarding the importance of good glycemic control and complications/sequela of uncontrolled diabetes mellitus. I do think that long-term insulin is going to be difficult for this patient especially given her medical non-compliance; however, with her blood sugars remaining in the 300 range, I do not believe we will get them down to a reasonable level with oral antihyperglycemic agents upfront. I would advise Lantus at least temporarily with continued metformin. Lengthy discussion with her regarding dietary and behavioral modifications. I have asked the dietitian and certified breastfeeding educator to meet with the patient--appreciate assistance. May benefit from Onglyza or Trulicity as this would help with added weight loss as well (2) Back pain: Plan: - CT scan shows lucency of the L2 transverse process consistent with an acute fracture - Patient without trauma or injury. I was concerned there was an underlying issue (such as a malignancy) for which further imaging may be required. I have discussed this case with Dr. aGo (the admissions specialist) who reviewed her CT scan imaging and reports that it is a very benign and clean fracture. He claims that even slight twisting with her current weight could cause such an injury. Recommendations are conservative management/pain medication - will add Voltaren gel (3) UTI (urinary tract infection): Plan: Patient with frequent UTIs. No CVA tenderness. No mention of pyelonephritis on CT UA grossly infected, final culture data pending -Ceftriaxone 2gm IV daily (dosed for weight) -Follow cultures (4) Hypothyroidism: Plan: Chronic -TSH= 40.66 -increase Synthroid. Need repeat TSH in 6 weeks Plan: Plan of care will be discussed with Dr. Covaleski. Further orders as warranted. Admission and Anticipated Discharge Date Admission Date: June 20, 2021 Subjective Patient seen on daily rounds today. Presented to the ED with Low back pain. While in the ED, found to have hyperglycemia (~500). She is a recently diagnosed diabetic (~1-2 months ago). Started on Metformin but admits that she is only taking is once a day (as she is still sleeping in the am when due for her morning dose). Does admit to fatigue and persistent yeast infection but otherwise, denies poly dipsia, polyuria, polydipsia. Low back pain ongoing x 3 days. No injury/trauma. Nonradicular. no loss of bowel or bladder function. CT showing ? Lucency of the L2 transverse process concerning for acute fracture. Review of Systems Review of Systems: All systems reviewed and are unremarkable except as noted in HPI and below Denies fevers, chills, headache, nasal congestion, sore throat, cough, chest pa in, shortness of breath, palpitations, orthopnea, PND, abdominal pain, nausea, vomiting, diarrhea, constipation, dysuria, hematuria, frequency, back pain, joint pain or swelling, easy bruising or bleeding, skin lesions or rashes. Physical Exam Physical Exam: General: Resting comfortably in her hospital bed. NAD. HEENT: Head is AT/NC. Buccal mucosa is moist and pink Neck: No JVD. Negative hepatojugular reflex Cardiac: RRR without M/G/R Lungs: CTA without W/R/R Abdomen: Normoactive X4. Soft and nontender in all quadrants. Extremities: No peripheral clubbing cyanosis or edema. Tenderness along the lumbar spinal processes. No pinpoint tenderness along the paravertebral spinal muscles. Negative straight leg raise bilaterally Neuro: A&O X4. Cranial nerves II through XII are grossly intact. No focal neuro deficits Skin: No obvious skin lesions or rashes Psych: Appropriate affect. Pleasant and cooperative Results & Data Results & Data ([facility]) Vital Signs (Past 12 Hours) Vital Signs Temp Pulse Pulse Resp BP BP BP 06/20/21 08:13 36.5 C 83 18 132/85 06/20/21 03:40 147/79 H 06/20/21 02:20 37.4 C 97 H 18 165/104 H 06/20/21 01:51 94 H 18 166/98 H 06/20/21 01:03 105 H 16 168/124 H Pulse Ox 06/20/21 08:13 93 06/20/21 03:40 06/20/21 02:20 95 06/20/21 01:51 95 06/20/21 01:03 97 Laboratory Results 06/19/21 21:45 06/19/21 21:45 PG Care Time/CCT Total # of Minutes Spent Total Time Spent with Patient: Total time spent is greater than 50% in coordination of care (as documented) at patient's floor/unit and/or counseling patient: Coding Level of Care Code None Diagnoses Diabetes E11.9 Back pain M54.9 UTI (urinary tract infection) N39.0 Hypothyroidism E03.9
[2021-06-20] MEDS ORDERED: FLUCONAZOLE 50 MG TAB PO SCH (16:00)
[2021-06-20] MEDS ORDERED: cefTRIAXone SODIUM 2,000 MG in DEXTROSE 5% 50 ML IV SCH (21:00)
[2021-06-21] MEDS ORDERED: LEVOTHYROXINE SODIUM 125 MCG TABLET PO SCH (06:30)
[2021-06-21 06:31] LABS: Basophils # (auto) 0.03 K/uL (0-0.2); Basophils % (auto) 0.3 %; Eosinophils # (auto) 0.15 K/uL (0-0.5); Eosinophils % (auto) 1.3 %; Hematocrit (blood only) 38.8 % (37-47); Hemoglobin 12.3 g/dL (12.0-16.0); Immature Granulocytes # (auto) 0.03 K/uL (0.00-0.02); Immature Granulocytes % (auto) 0.3 %; Lymphocytes # (auto) 2.74 K/uL (1.2-3.4); Lymphocytes % (auto) 23.7 %; Mean Corpuscular Hgb Conc 31.7 g/dL (32-36); Mean Platelet Volume 8.8 fL (7.4-10.4); Monocytes # (auto) 0.69 K/uL (0.11-0.59); Neutrophils # (auto) 7.94 K/uL (1.4-6.5); Neutrophils % (auto) 68.4 %; Platelet Count 216 K/uL (130-400); RDW Standard Deviation 45.5 fL (36.4-46.3); Red Blood Count 4.73 M/uL (4.2-5.4); White Blood Count 11.58 K/uL (4.8-10.8)
[2021-06-21 07:04] LABS: Anion Gap 5 (3-11); BUN Creatinine Ratio 15.8 (10-20); Blood Urea Nitrogen 9 mg/dl (6-23); Calcium 8.8 mg/dl (8.5-10.1); Carbon Dioxide 30 mmol/L (21-32); Chloride 104 mmol/L (98-107); Est GFR (African American) > 150.0 ml/min; Est GFR (Non-African American) 130.7 ml/min; Glucose 190 mg/dl (70-99(Fasting)); Potassium 3.9 mmol/L (3.5-5.1); Sodium 139 mmol/L (136-145)
[2021-06-21] MEDS: LIDOCAINE 5% 1 PATCH TD SCH (09:03)
[2021-06-21] MEDS: INSULIN ASPART PER UNIT SC SCH ×2 (09:44→12:15)
--- NOTE | 2021-06-21 12:01 | Discharge Summary ---
Date of Service June 21, 2021 Admission HPI Per Admitting Provider Debi Diaz is a 25yo female with history of DM (fairly recently diagnosed within the last 1-2 years). She is on Metformin therapy with poor adherence. She presents today with 3 days of low back pain. Pain is constant, dull and aching, located across the low back. She has occasional stabbing pain, 10/10 at its worst. Worse with movement and position as well as deep breathing. She denies numbness/tingling/weakness. Denies bowel or bladder problems. No trauma, no strain. Patient has missed several doses of her Metformin. She states that she tolerates the medication well but has difficulty remembering to take it. She denies fever, chills, chest pain, cough, SOB. Denies abdominal pain, nausea, vomiting, diarrhea or constipation, dysuria, hematuria. No additional complaints at this time. In the ER patient was in acute distress secondary to pain. She was administered Morphine IV which improved her pain to 7/10. Her significant other is in the room with her. Patient is tearful and does not wish to stay in the hospital without her significant other. Blood sugar elevated at 486 on arrival. Improved to 312 after IVF and 10u IV insulin No anion gap ER Course: Ceftriaxone 2gm IV, Insulin 10u IV, Morphine 4mg IV, Zofran 4mg IV, NSS x 1L Principal Diagnosis 1. Acute Nontraumatic L2 Transverse Process Spinal Process (likely weight related) 2. Hyperglycemia 3. Uncontrolled Diabetes Mellitus 4. Uncontrolled Hypothyroidism 5. UTI 6. Vaginal Candidiasis Discharge Exam General: Morbidly Obese. Resting comfortably in her hospital bed. NAD. HEENT: Head is AT/NC. Buccal mucosa is moist and pink Neck: No JVD. Negative hepatojugular reflex Cardiac: RRR without M/G/R Lungs: CTA without W/R/R Abdomen: Normoactive X4. Soft and nontender in all quadrants. Extremities: No peripheral clubbing cyanosis or edema. Tenderness along the lumbar spinal processes. No pinpoint tenderness along the paravertebral spinal muscles. Negative straight leg raise bilaterally Neuro: A&O X4. Cranial nerves II through XII are grossly intact. No focal neuro deficits Skin: No obvious skin lesions or rashes Psych: Appropriate affect. Pleasant and cooperative Discharge Data Allergies Allergy/AdvReac Type Severity Reaction Status Date / Time adhesive tape Allergy Mild Rash Verified 06/20/21 00:34 Consultations 06/20/21 01:16 ED Decision to Admit Stat Ordered Studies 06/19/21 22:13 CT abd pelvis IV con only Urgent IMPRESSION: 1. There are no acute infectious or inflammatory findings in the abdomen or pelvis. 2. Hepatomegaly and severe hepatic steatosis. 3. Splenomegaly. 4. 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 5. Cholelithiasis. 6. Additional findings as above. 06/19/21 22:18 CT lumbar spine w con Urgent IMPRESSION: 1. Ill-defined linear lucency involving the right L2 transverse process may represent an acute nondisplaced fracture. Correlate with point tenderness. This finding was called/faxed to the emergency department at time of dictation. 2. Congenitally shortened pedicles. No high-grade central canal or neural foraminal narrowing identified. 3. Cholelithiasis. 4. Hepatic steatosis with hepatosplenomegaly. ACT 112: Negative or not required by law. The above report was generated using voice recognition software. It may contain grammatical, syntax or spelling errors. 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 She is on Metformin therapy at home. Misses doses frequently. Presents with hyperglycemia - BSG 486 on arrival. Improved to 312 after 1L IVF and 10u insulin IV. - A1C 12.2% - has been started on Lantus (7U BID) along with SS coverage with analog-- blood sugars remain in the mid-upper 300's - uptitrated lantus to 20U total and shift to once/day for added compliance --> BS 190 today - continue metformin (transition to XR as compliance with the twice daily dosing seems to be an issue) - although concern for compliance with insulin, I do not feel that her BS will be acceptable without insulin (at least for now). Lengthy D/W patient regarding this and the importance of good glycemic control. She has since met with the desktop operator and is agreeable and willing to trial insulin. Increase Lantus to 26 U HS. Check FBS daily and increase lantus by 2 units every 3 days until FBS </=120. - I believe that with added lifestyle/behavioral modifications and weight loss, patient can perhaps be transitioned from Lantus to Ozempic or Trulicity (for the added benefit of weight loss) -Lengthy discussion with patient regarding the importance of good glycemic control and complications/sequela of uncontrolled diabetes mellitus. Patient has been with the desktop operator and the bulb tester - follow up with PCP: recommend FU labs (BMP=1month and 3 months along with A1C in 3 months). BRING GLUCOMETER to FU appt (2) Back pain: - CT scan shows lucency of the L2 transverse process consistent with an acute fracture - Patient without trauma or injury. I was concerned there was an underlying issue (such as a malignancy-- as this was a nontraumatic fracture) for which further imaging may be required. I have discussed this case with Dr. Gao (the micro computer specialist) who reviewed her CT scan imaging and reports that it is a very benign and clean fracture. He claims that even slight twisting with her current weight could cause such an injury. Recommendations are conservative management/pain medication - pain controlled-- continue voltaren gel as needed (3) UTI (urinary tract infection): Patient with frequent UTIs. No CVA tenderness. No mention of pyelonephritis on CT UA grossly infected, final culture data pending -Ceftriaxone empirically upfront, transition to Cipro (total of 3 days for an uncomplicated UTI) (4) Hypothyroidism: Chronic -TSH= 40.66 -increased Synthroid. Need repeat TSH in 6 weeks (per PCP) patient seen and agreed upon by Dr. Cristobal Total Time Total Time Spent Total Time Spent (In Minutes): 45 min including time spent with patient and preparation of documentation Discharge Plan Discharge Items Patient Disposition: Home - Self-Care Reason For Visit: HYPERGLYCEMIA, BACK PAIN Discharge Diagnosis: 1. Low back painvertebral fracture 2. Hyperglycemiauncontrolled diabetes mellitus 3. Uncontrolled hypothyroidism 4. UTI 5. Vaginal candidiasis Condition on Discharge: Good Activity: Resume your previous activity Non-emergency contact: Primary Care Provider Call non-emergency contact if: you have any medication questions Follow-up/Referrals: Jarad Welch MD [Resident] - PCP,NO [Primary Care Provider] - Diet: Carb Consistent or DM2 Addtl Attending Provider Instructions: You presented to the hospital complaining of low back pain. He was found to have a fracture involving your lumbar spine (transverse process of L2). I did discuss this with a micro computer specialist and there is no added recommendations other than pain control. You have been prescribed Voltaren gel to apply topically as needed for pain. The fracture will heal on its own. You deny any injury or trauma to have caused this fracture. In talking with the micro computer specialist, it is quite possible that this fracture could have occurred even from twisting. I strongly advise weight loss to help take the weight off of your spine and other joints. The reason you were hospitalized is that your blood sugars were significantly elevated (close to 500). As discussed, it is imperative that you keep control of your blood sugars. I do believe that a big component of why your blood sugars are elevated are from insulin resistance. As we discussed, you are making insulin but the insulin that you are making is resistant and not working the way that it should. When you have truncal obesity (weight centered around the abdomen), this significantly increases your risk of becoming insulin resistant. Metformin will help with the insulin resistance thus it will help the insulin that your body is making become more effective. In addition, the best thing you can do is modify your diet and try to lose some weight. I have encouraged a carb consistent diet. I recommend that you look at the nutritional panel on everything that you eat and be cognizant of the total carbohydrates. You should limit yourself to 45 total grams of carbs per meal (that is total carbohydrates and not just sugars). In addition, you can have up to 45 total grams of carbs and snacks throughout the day. This could be 1, 45 g snack or 3, 15 g snacks throughout the day. In order to help you with the amount of carbohydrates in food, utilize your smart phone. You could easily look up how many carbohydrates are in a potato and what the serving size would be (i.e., total grams per potato may be a serving size of the palm of your hand or smaller). There are many items that contain carbohydrates that you may not realize (such as yogurt, milk, fruits and many drinks). They do make several low carbohydrate or 0 carbohydrate options. It is not necessary for you to eliminate carbohydrates completely from your diet as they are essential. It is important that you limit the amount of carbohydrates. In order to get your blood sugars better controlled upfront, you are being discharged with insulin. Lantus is a long-acting insulin and will help keep your blood sugars under control until the metformin has a chance to work and you have a chance to incorporate the dietary and lifestyle modifications. Start with 26 units to be injected tonight. Increase the number of units by #2 units every 3 days until your fasting blood sugar is </= 120. Check your fasting blood sugar every day to help gauge your Lantus dosing. I strongly believe that if you modify your diet and incorporate some lifestyle changes and weight loss that you can be transitioned off of insulin. There are other medications that would be beneficial (such as Ozempicthis medication is a once a week injection but it is not insulin. An added benefit to this medication is weight loss. Talk about this with your family doctor). If your blood sugars are <70, eat or drink 15 g of total carbohydrates and repeat your blood sugars within 15 minutes. Signs and symptoms of low blood sugars or dizziness, shakiness, lightheadedness, nausea, sweating. If you experience any of this, check your blood sugar to make sure that your blood sugar is not too low. In addition to the Lantus started, your metformin has been transitioned to a long-acting (once a day) dose. You discussed that remembering to take this medication twice a day was difficult for you. To help with this, you have been changed to a once a day dosing. While you are in the hospital, your thyroid was assessed. Your levothyroxine has been increased. You will need to have a repeat TSH within 6 to 8 weeks. This is at the discretion of your PCP. You have been treated with antibiotics for a urinary tract infection. In addition, you have been started on Diflucan for a vaginal yeast infection (which is likely related to the uncontrolled blood sugars. The antibiotic on board may make this worse). You will need follow-up lab work (at the discretion of your family doctor). Would recommend a basic metabolic panel in 1 month to trend your renal function given the transition of your metformin. In addition, would recommend a complete metabolic panel, repeat A1c and repeat TSH within 3 months. This is at the discretion of your PCP. In addition, would consider a lipid panel for further risk stratification. You are only 25 and it is imperative to gain control of your health now. I encourage you to control your diabetes and not let your diabetes control you. As we discussed, there are many complications that can arise from uncontrolled blood sugars. These include (but are not limited to), blindness, renal failure and the need for dialysis, wounds on the legs, amputations, heart attacks, strokes, etc. Please work with your healthcare provider to continue working on your health. If you have any questions or concerns, please feel free to reach out. I know this is all overwhelming. We are here to give you the tools that you need and to help you along this process. Return to the ED for any new or worsening symptomatology Pending Studies at Discharge: No Stand-Alone Forms: My [facility], Smoking Cessation Medications and DC Order Prescriptions: New fluconazole [Diflucan] 100 mg tablet 100 mg PO DAILY Qty: 10 RF: 0 Lantus Solostar U-100 Insulin 100 unit/mL (3 mL) insulin pen 26 unit subcut PM Qty: 15 RF: 0 (DME) pen needle, diabetic [BD Ultra-Fine Micro Pen Needle] 32 gauge x 1/4" needle See Rx Instructions .Route Qty: 100 RF: 0 (DME) OneTouch Verio test strips Strip See Rx Instructions .Route Qty: 50 RF: 0 (DME) lancets [OneTouch Delica Lancets] 30 gauge misc See Rx Instructions .Route Qty: 100 RF: 0 alcohol swabs [Alcohol Wipes] Pads, Medicated 1 pad topical DIRECTED Qty: 200 RF: 0 ciprofloxacin HCl [Cipro] 500 mg tablet 500 mg PO BID Qty: 3 RF: 0 diclofenac sodium [Voltaren Arthritis Pain] 1 % gel 2 g topical QID Qty: 100 RF: 0 metformin 1,000 mg tablet,ER gladys.retention 24 hr 1,000 mg PO PM Qty: 30 RF: 0 levothyroxine [Synthroid] 125 mcg Tablet 125 mcg PO DAILYBB Qty: 30 RF: 0 Continued ibuprofen 200 mg Tablet 400 mg PO Q6H PRN (Reason: Outbreak) RF: 0 Discontinued levothyroxine 75 mcg tablet 75 mcg PO DAILY RF: 0 metformin 500 mg tablet extended release 24 hr 500 mg PO BID RF: 0 Discharge Orders: Discharge Order (Routine); Ordered 06/21/21 Ordered By: Libby Esposito Admission Data Admit Date/Time: 06/20/21 01:13 Attending Provider: Hamzah Cristobal Admit Provider: Ines Li Primary Care Provider: PCP,NO Other Providers: Ines Li Coding Level of Care Code 51934 OBS Care - Discharge Diagnoses Diabetes E11.9 Back pain M54.9 UTI (urinary tract infection) N39.0 Hypothyroidism E03.9
== END 2021-06-21 14:44 | disposition home or self-care (01) ==
LOC: 3N 21:20 → ED 21:20 → SUATTDRO 06-20 01:13 → 3N 06-20 01:51